=== PATIENT | female | born 1990 | race African-American/Black ===

== ENCOUNTER → 2017-05-30 | Outpatient (CLI) | payer MEDICAID ==
[~2017-05-30] MED LIST: FEOSOL65 MG PO; PRENATAL1 TA1 PO
== END ==
LOC: COL.RAD 10:27
DX: Q51.4 Unicornate uterus (principal)

== ENCOUNTER 2018-12-22 18:52 | Emergency (ER) | payer MEDICAID ==
[~2018-12-22] VITALS: Ht 165.1 cm; Wt 131.8 kg
[2018-12-22 18:57] VITALS: BP 125/85; TEMP 97.1
[2018-12-22 19:18] LABS: COLLECTION METHOD CLEAN CATCH
[2018-12-22 19:28] LABS: MUCOUS Present /lpf; PH 5 (5-8); URINE APPEARANCE Cloudy; URINE BACTERIA Moderate /hpf; URINE BILIRUBIN Negative (NEGATIVE); URINE BLOOD 2+ (NEGATIVE); URINE COLOR Yellow; URINE GLUCOSE Negative (NEGATIVE); URINE KETONE Negative (NEGATIVE); URINE LEUKOCYTE ESTERASE 1+ (NEGATIVE); URINE NITRATE Positive (NEGATIVE); URINE PROTEIN(semi-quant) 1+ (NEGATIVE); URINE RBC >50 /hpf; URINE UROBILINOGEN >=4.0 mg/dL (NEGATIVE)
[2018-12-22] MEDS ORDERED: CEFTIN500 MG PO (19:34)
[2018-12-22] MEDS ORDERED: PYRIDIUM200 M1 PO (19:34)
[2018-12-22 19:45] VITALS: PULSE 95
== END 2018-12-22 19:45 | disposition home or self-care (01) ==
LOC: COL.ER 18:52
PROVIDERS: Emergency Medicine
DX: N39.0 Urinary tract infection, site not specified (principal); Z98.890 Other specified postprocedural states

== ENCOUNTER 2019-03-18 15:07 | Emergency (ER) | payer MEDICAID ==
[~2019-03-18] VITALS: Ht 165.1 cm; Wt 132.6 kg
[~2019-03-18 15:07] MED LIST changes: +CEFTIN500 MG PO; +PYRIDIUM200 M1 PO
[2019-03-18 15:13] VITALS: BP 122/76; TEMP 99
[2019-03-18] MEDS ORDERED: AMOXICILLIN 8751 TAB PO (17:03)
[2019-03-18 17:20] VITALS: PULSE 86
== END 2019-03-18 17:25 | disposition home or self-care (01) ==
LOC: COL.ER 15:07
DX: J32.9 Chronic sinusitis, unspecified (principal)

== ENCOUNTER 2019-06-30 10:43 | Emergency (ER) | payer MEDICAID ==
[~2019-06-30] VITALS: Ht 165.1 cm; Wt 127.3 kg
[~2019-06-30 10:43] MED LIST changes: +AMOXICILLIN 8751 TAB PO
[2019-06-30 11:06] VITALS: TEMP 99.1
[2019-06-30 11:47] LABS: STREP SCREEN POSITIVE
[2019-06-30 13:18] VITALS: BP 118/70; PULSE 91
== END 2019-06-30 13:19 | disposition home or self-care (01) ==
LOC: COL.ER 10:43
PROVIDERS: Physician Assistant
DX: J02.0 Streptococcal pharyngitis (principal); Z98.890 Other specified postprocedural states
CPT/HCPCS: J0561

== ENCOUNTER 2019-08-04 13:39 | Emergency (ER) | payer SELFPAY ==
[~2019-08-04] VITALS: Ht 165.1 cm; Wt 131.8 kg
[2019-08-04 14:05] VITALS: BP 117/75; TEMP 98.9
[2019-08-04 16:05] VITALS: PULSE 67
== END 2019-08-04 16:05 | disposition home or self-care (01) ==
LOC: COL.ER 13:39
DX: S86.911A Strain of unspecified muscle(s) and tendon(s) at lower leg level, right leg, initial encounter (principal); W07.XXXA Fall from chair, initial encounter; Y92.59 Other trade areas as the place of occurrence of the external cause

== ENCOUNTER 2019-09-04 14:57 | Emergency (ER) | payer MEDICAID ==
[~2019-09-04] VITALS: Ht 165.1 cm; Wt 131.8 kg
[2019-09-04 15:09] VITALS: BP 116/68; TEMP 97.1
[2019-09-04 15:44] LABS: COLLECTION METHOD CLEAN CATCH
[2019-09-04 15:57] LABS: MUCOUS Present /lpf; PH 5 (5-8); SQUAMOUS EPITHELIAL 0-2 /hpf; URINE APPEARANCE Hazy; URINE BACTERIA None Seen /hpf; URINE BILIRUBIN Negative (NEGATIVE); URINE BLOOD Negative (NEGATIVE); URINE COLOR Yellow; URINE GLUCOSE Negative (NEGATIVE); URINE KETONE Negative (NEGATIVE); URINE LEUKOCYTE ESTERASE Negative (NEGATIVE); URINE NITRATE Negative (NEGATIVE); URINE PROTEIN(semi-quant) Negative (NEGATIVE); URINE RBC 0-2 /hpf; URINE UROBILINOGEN >=4.0 mg/dL (NEGATIVE)
[2019-09-04] MEDS ORDERED: ZOFRAN ODT4 MG PO (16:35)
[2019-09-04 16:55] VITALS: PULSE 76
== END 2019-09-04 16:55 | disposition home or self-care (01) ==
LOC: COL.ER 14:57
PROVIDERS: Physician Assistant
DX: O21.9 Vomiting of pregnancy, unspecified (principal); O26.891 Other specified pregnancy related conditions, first trimester; R10.2 Pelvic and perineal pain; Z3A.01 Less than 8 weeks gestation of pregnancy

== ENCOUNTER 2019-10-29 07:01 | Emergency (ER) | payer MEDICAID ==
[~2019-10-29] VITALS: Ht 160 cm; Wt 136.4 kg
[~2019-10-29 07:01] MED LIST changes: +ZOFRAN ODT4 MG PO
[2019-10-29 07:27] VITALS: TEMP 98.3
[2019-10-29 08:21] LABS: COLLECTION METHOD CLEAN CATCH
[2019-10-29 08:30] LABS: MUCOUS Present /lpf; PH 6 (5-8); SQUAMOUS EPITHELIAL 0-2 /hpf; URINE APPEARANCE Clear; URINE BACTERIA Rare /hpf; URINE BILIRUBIN Negative (NEGATIVE); URINE BLOOD Negative (NEGATIVE); URINE COLOR Yellow; URINE GLUCOSE Negative (NEGATIVE); URINE KETONE Negative (NEGATIVE); URINE LEUKOCYTE ESTERASE Negative (NEGATIVE); URINE NITRATE Negative (NEGATIVE); URINE PROTEIN(semi-quant) Negative (NEGATIVE); URINE RBC 0-2 /hpf; URINE UROBILINOGEN Negative (NEGATIVE)
[2019-10-29 09:10] LABS: BASO % 0.4 % (0.0-2.0); EOS # 0.1 (0.0-0.7); GRAN % 71.8 % (42.2-75.2); LYMPH # 1.4 (1.2-3.4); LYMPH % 20.3 % (20.0-51.0); MEAN CELL VOLUME 87 fl (80.0-100.0); MEAN CORPUSCULAR HEMOGLOBIN 29 pg (27.0-31.0); MEAN CORPUSCULAR HGB CONC 33 g/dl (33.0-37.0); MEAN PLATELET VOLUME 10.9 fl (7.4-10.4); MONO # 0.4 (0.1-0.6); MONO % 6.2 % (1.7-9.3); PLATELET COUNT 201 K/mm3 (130-400); RED BLOOD COUNT 3.48 M/mm3 (4.10-5.30); REDCELL DISTRIBUTION WIDTH-CV 13.2 % (11.5-14.5)
[2019-10-29 09:11] LABS: HEMATOCRIT 30.2 % (37.0-47.0)
[2019-10-29 09:27] LABS: ALBUMIN 3.5 gm/dL (3.5-5.0); BILIRUBIN,TOTAL 0.4 mg/dL (0.0-1.0); C-REACTIVE PROTEIN 2.7 mg/dL (0.0-0.9); CALCIUM 8.8 mg/dL (8.4-10.2); CREATININE, serum 0.53 (0.52-1.25); POTASSIUM 3.7 mmol/L (3.4-5.0); TOTAL PROTEIN 7.1 gm/dL (6.4-8.2)
[2019-10-29 13:22] VITALS: BP 104/66; PULSE 77
== END 2019-10-29 13:20 | disposition home or self-care (01) ==
LOC: COL.ER 07:01
PROVIDERS: Emergency Medicine
DX: O99.612 Diseases of the digestive system complicating pregnancy, second trimester (principal); K80.20 Calculus of gallbladder without cholecystitis without obstruction; O99.012 Anemia complicating pregnancy, second trimester; D64.9 Anemia, unspecified; O26.52 Maternal hypotension syndrome, second trimester; Z3A.15 15 weeks gestation of pregnancy; Z98.890 Other specified postprocedural states
CPT/HCPCS: J2405; J7030

== ENCOUNTER → 2020-04-10 | Outpatient (CLI) | payer MEDICAID ==
[~2020-04-10] MED LIST changes: +FERRO-TIME325 MG PO; +IBU800 M1 PO; +PERCOCET 325 MG1 TA2 PO; +PRENATAL
== END ==
LOC: ZCOL.LAB 08:00
DX: Z01.818 Encounter for other preprocedural examination (principal); Z20.828 Contact with and (suspected) exposure to other viral communicable diseases

== ENCOUNTER 2020-04-16 05:34 | Inpatient (IN) | payer MEDICAID ==
[~2020-04-16] VITALS: Ht 167.7 cm; Wt 140.9 kg
[2020-04-16] VITALS (20 sets, daily range): BP systolic 91–112; BP diastolic 47–68; PULSE 58–84; TEMP 97.4–98.6
[~2020-04-16 05:34] MED LIST changes: -FERRO-TIME325 MG PO; -IBU800 M1 PO; -PERCOCET 325 MG1 TA2 PO; -PRENATAL
--- NOTE | 2020-04-16 05:45 | NUR ---
0545 ADMITTED TO [facility] FOR REPEAT C/SECT THIS AM. EFM ON WITH FHT'S 104'S WITH ACCELS NOTED. PERMITS SIGNED AND IV STARTED WITH LAB OBTAINED.
[2020-04-16] MEDS ORDERED: PRENATAL (06:27)
[2020-04-16] MEDS ORDERED: FERRO-TIME325 MG PO (06:28)
[2020-04-16 06:29] LABS: BASO % 0.3 % (0.0-2.0); EOS # 0.1 (0.0-0.7); EOS % 0.9 % (0-4.0); GRAN # 6.9 (1.4-6.5); GRAN % 77.1 % (42.2-75.2); LYMPH # 1.4 (1.2-3.4); LYMPH % 15.3 % (20.0-51.0); MEAN CELL VOLUME 86 fl (80.0-100.0); MEAN CORPUSCULAR HGB CONC 32 g/dl (33.0-37.0); MEAN PLATELET VOLUME 11.9 fl (7.4-10.4); MONO # 0.5 (0.1-0.6); MONO % 5.8 % (1.7-9.3); PLATELET COUNT 235 K/mm3 (130-400); RED BLOOD COUNT 3.35 M/mm3 (4.10-5.30); REDCELL DISTRIBUTION WIDTH-CV 14.5 % (11.5-14.5)
--- NOTE | 2020-04-16 06:30 | NUR ---
0630-Recieved report from MARCELLA Loredo. Patient Wedge left with EFM in place. Reports good movement. Denies vaginal bleeding or leaking of fluid. Assessment complete. 0636-Off EFM. Abdomen cleansed per hospital protocol. Mons pubis clipped with trimmers. Updated on plan of care. 0720-To OR ambulatory with spouse.
[2020-04-16 06:41] LABS: HEMATOCRIT 28.7 % (37.0-47.0); HEMOGLOBIN 9.2 g/dl (12.5-16.0); MEAN CORPUSCULAR HEMOGLOBIN 27 pg (27.0-31.0)
[2020-04-16] MEDS ORDERED: IBU800 M1 PO (17:19)
[2020-04-16] MEDS ORDERED: PERCOCET 325 MG1 TA2 PO (17:19)
--- NOTE | 2020-04-16 18:50 | NUR ---
0855-Patient to PACU via bed, A&O x4. Report recieved by MONICA Horvath. VSS, see recovery flow record. Remained with patient per protocol.
[2020-04-17 02:27] VITALS: BP 101/50; PULSE 68; TEMP 98.6
[2020-04-17 07:13] LABS: HEMATOCRIT 26.3 % (37.0-47.0); HEMOGLOBIN 8.3 g/dl (12.5-16.0); MEAN CELL VOLUME 88 fl (80.0-100.0); MEAN CORPUSCULAR HEMOGLOBIN 28 pg (27.0-31.0); MEAN CORPUSCULAR HGB CONC 32 g/dl (33.0-37.0); MEAN PLATELET VOLUME 11.5 fl (7.4-10.4); PLATELET COUNT 189 K/mm3 (130-400); REDCELL DISTRIBUTION WIDTH-CV 14.8 % (11.5-14.5)
[2020-04-17 07:15] VITALS: BP 104/52; PULSE 72; TEMP 98.6
--- NOTE | 2020-04-17 09:00 | NUR ---
Patient states having to throw up and missed the waste basket. Moderate amount of emisis noted. States feeling better now.
--- NOTE | 2020-04-17 09:39 | NUR ---
Rests in bed, alert. Zofran 4 mg iv, tylenol 650 mg given per request and as ordered.
--- NOTE | 2020-04-17 10:25 | NUR ---
Initial visit; Patient thanked School Bus Monitor for offering congratulations and God's blessings for the of her daughter. School Bus Monitor thanked Mom for choosing [facility].
--- NOTE | 2020-04-17 14:30 | NUR ---
Ambulates in the [address] with baby in the crib. Tolerates well.
[2020-04-17 16:01] VITALS: BP 116/66; PULSE 74; TEMP 98
[2020-04-17 20:30] VITALS: BP 113/55; PULSE 88; TEMP 98.5
[2020-04-18 08:15] VITALS: BP 118/67; PULSE 83; TEMP 97.7
== END 2020-04-18 13:26 | disposition home or self-care (01) | DRG 788 ==
LOC: OB 05:34
PROVIDERS: ADMIT Student in an Organized Health Care Education/Training Program
PROC: 10D00Z1 Extraction of Products of Conception, Low, Open Approach (ICD-10-PCS; principal; 2020-04-16)
DX: O34.211 Maternal care for low transverse scar from previous cesarean delivery (principal); Z37.0 Single live birth; O99.214 Obesity complicating childbirth; E66.01 Morbid (severe) obesity due to excess calories; O99.02 Anemia complicating childbirth; D64.9 Anemia, unspecified; O99.824 Streptococcus B carrier state complicating childbirth; O99.344 Other mental disorders complicating childbirth; F32.9 Major depressive disorder, single episode, unspecified; O34.03 Maternal care for unspecified congenital malformation of uterus, third trimester; Q51.28 Other and unspecified doubling of uterus; Z3A.39 39 weeks gestation of pregnancy
CPT/HCPCS: J0690; J2270; J2370; J2405; J2590; J3010; J7120

== ENCOUNTER 2023-12-26 05:09 | Inpatient (IN) | payer MEDICAID ==
[2023-12-26] VITALS (13 sets, daily range): BP systolic 92–124; BP diastolic 37–77; PULSE 55–73; TEMP 98.1–98.7
[~2023-12-26] VITALS: Ht 167.6 cm; Wt 145.0 kg
[~2023-12-26 05:09] MED LIST changes: +FERRO-TIME325 MG PO; +IBU800 M1 PO; +LR 1,000 ML IV SCH; +Ondansetron 4 MG/2 ML VIAL IV SCH; +PERCOCET 325 MG1 TA2 PO; +PRENATAL
[2023-12-26] MEDS ORDERED: LR 1,000 ML IV SCH (07:15)
[2023-12-26] MEDS ORDERED: FERROUSAL325 MG PO (08:01)
[2023-12-26] MEDS ORDERED: NS 10 ML IV ONE ×2 (08:13→08:16)
[2023-12-26] MEDS ORDERED: Ketorolac 30 MG/ML VIAL ONE (08:13)
[2023-12-26] MEDS ORDERED: Ondansetron 4 MG/2 ML VIAL ONE (08:13)
[2023-12-26] MEDS ORDERED: Oxytocin 10 UNITS/ML VIAL ONE (08:13)
[2023-12-26 08:32] LABS: BASO % 0.3 % (0.0-2.0); EOS # 0.1 K/mm3 (0.0-0.7); EOS % 1.4 % (0.0-4.0); GRAN # 7.6 K/mm3 (1.4-6.5); GRAN % 78.9 % (42.2-75.2); HEMOGLOBIN 10.9 g/dl (12.5-16.0); LYMPH # 1.3 K/mm3 (1.2-3.4); MEAN CELL VOLUME 87 fl (80.0-100.0); MEAN CORPUSCULAR HEMOGLOBIN 28 pg (27-31); MEAN CORPUSCULAR HGB CONC 32 g/dl (33.0-37.0); MEAN PLATELET VOLUME 11.4 fl (7.4-10.4); MONO # 0.5 K/mm3 (0.1-0.6); MONO % 5.5 % (1.7-9.3); PLATELET COUNT 255 K/mm3 (130-400); RED BLOOD COUNT 3.86 M/mm3 (4.10-5.30); REDCELL DISTRIBUTION WIDTH-CV 14.7 % (11.5-14.5)
[2023-12-26 08:42] LABS: HEMATOCRIT 33.6 % (37.0-47.0)
[2023-12-26] MEDS ORDERED: Ondansetron 4 MG/2 ML VIAL IV PRN ×2 (09:00→10:30)
[2023-12-26] MEDS ORDERED: Phenylephrine 10 MG/ML VIAL ONE (09:42)
[2023-12-26] MEDS ORDERED: Naloxone 0.4 MG/ML VIAL IV PRN (10:30)
[2023-12-26] MEDS ORDERED: Measles/Mumps/Rubella Virus Vaccine Live w Diluent 0.5 ML VIAL SQ SCH (10:30)
[2023-12-26] MEDS ORDERED: Magnes Hydrox (MOM) 80 MG/ML 30 ML CUP PO PRN (10:30)
[2023-12-26] MEDS ORDERED: Loratadine 10 MG TAB PO PRN (10:30)
[2023-12-26] MEDS ORDERED: oxyCODONE/Acetaminophen 5-325 MG TAB PO PRN (10:30)
[2023-12-26] MEDS ORDERED: LR 1,000 ML IV PRN (10:30)
[2023-12-26] MEDS ORDERED: LR 1,000 ML IV ONE (11:13)
[2023-12-26] MEDS ORDERED: Ibuprofen 800 MG TAB PO SCH (16:28)
[2023-12-26] MEDS ORDERED: Sennosides/Docusate 8.6-50 MG TAB PO SCH (17:00)
--- NOTE | 2023-12-26 18:34 | NUR ---
REPORT RECEIVED, PATIENT CURRENTLY HAS VISITORS IN ROOM .
[2023-12-26] MEDS ORDERED: traZODone 50 MG TAB PO PRN (21:00)
--- NOTE | 2023-12-26 22:45 | NUR ---
Patient up to bathroom with assistance of two using the callum stedy. Morales cathetor removed. Patient able to void, but missed collection hat. Pericare provided, clean gown, mesh panties, and mohini pad provided. Bed bads changed. Patient returned to bed via callum stedy. Patient tolerated well.
--- NOTE | 2023-12-27 02:23 | NUR ---
PATIENT UP TO BATHROOM WITH ASSISTANCE OF ONE USING WALKER AND GAIT BELT. PATIENT TOLERATED WELL.
[2023-12-27 03:30] VITALS: BP 97/60; PULSE 96; TEMP 97.9
[2023-12-27 07:04] VITALS: BP 108/46; PULSE 73; TEMP 98.6
[2023-12-27] MEDS ORDERED: Ferrous Sulfate 325 MG TAB PO SCH (09:00)
--- NOTE | 2023-12-27 09:53 | NUR ---
Initial visit; Patient thanked Tacker Off for looking in on her and offering congratulations and God's blessings for the of her daughter. Tacker Off thanked patient for choosing our hospital.
[2023-12-27 16:45] VITALS: BP 108/72; PULSE 66; TEMP 98.3
[2023-12-27 19:30] VITALS: BP 116/62; PULSE 81; TEMP 97.5
[2023-12-28 08:00] VITALS: BP 124/70; PULSE 68; TEMP 98
== END 2023-12-28 12:10 | disposition home or self-care (01) | DRG 788 ==
LOC: OB 05:09
PROVIDERS: ADMIT Student in an Organized Health Care Education/Training Program
PROC: 10D00Z1 Extraction of Products of Conception, Low, Open Approach (ICD-10-PCS; principal; 2023-12-26)
DX: O34.211 Maternal care for low transverse scar from previous cesarean delivery (principal); E66.01 Morbid (severe) obesity due to excess calories; Z3A.35 35 weeks gestation of pregnancy; Z37.0 Single live birth; O99.02 Anemia complicating childbirth; O99.214 Obesity complicating childbirth; O99.824 Streptococcus B carrier state complicating childbirth; O32.1XX0 Maternal care for breech presentation, not applicable or unspecified
CPT/HCPCS: J0665; J0690; J1885; J2371; J2405; J2590; J2765; J7120